=== PATIENT | male | born 1950 | race Caucasian/White ===

== ENCOUNTER 2024-01-15 10:42 | Emergency (ER) | payer OTHER, MEDICARE ==
[2024-01-15 11:03] VITALS: BP 156/90; PULSE 82; RESP 20; TEMP 98.2; BMI 31.6
[2024-01-15] MEDS ORDERED: DIPHTH,PERTUSS(ACELL),TET 0.5 ML DISP.SYRIN IM ONE (11:54)
[2024-01-15] MEDS: DIPHTH,PERTUSS(ACELL),TET 0.5 ML DISP.SYRIN IM ONE (11:59)
== END 2024-01-15 12:00 | disposition home or self-care (01) ==
LOC: FER 10:42
PROC: 0HQFXZZ Repair Right Hand Skin, External Approach (ICD-10-PCS; principal; 2024-01-15)
PROC: 3E0234Z Introduction of Serum, Toxoid and Vaccine into Muscle, Percutaneous Approach (ICD-10-PCS; 2024-01-15)
DX: S61.210A Laceration without foreign body of right index finger without damage to nail, initial encounter (principal); Z23 Encounter for immunization; W26.8XXA Contact with other sharp object(s), not elsewhere classified, initial encounter
CPT/HCPCS: 12002-25; 90471; 90715; 99284-25

== ENCOUNTER 2024-01-18 08:37 | Emergency (ER) | payer OTHER, MEDICARE ==
[2024-01-18 08:47] VITALS: BP 149/76; PULSE 86; RESP 18; TEMP 97.7; BMI 31.6
[2024-01-18] MEDS ORDERED: AMOX TR/POT CLAV 875MG/125MG TABLETS (FP) ONE (08:56)
[2024-01-18] MEDS: AMOX TR/POT CLAV 875MG/125MG TABLETS (FP) PO ONE (09:10)
== END 2024-01-18 09:09 | disposition home or self-care (01) ==
LOC: FER 08:37
DX: L03.012 Cellulitis of left finger (principal)
CPT/HCPCS: 99283-25